=== PATIENT | male | born 1945 | race Caucasian/White ===

== ENCOUNTER → 2025-04-16 | Day surgery (SDC) | payer MEDICARE ==
[~2025-04-16] MED LIST: APIX5TAB PO; ATOR20TA65 PO; FERS325 PO; FINA5TAB41 PO; FOLI1 PO; HYDR500C2 PO; PANT40TA55 PO; SUCR1ORA15 PO; TAMS-55 PO
[2025-04-16 14:30] LABS: IMMATURE GRANULOCYTE ABSOLUTE 0.13 K/uL (0-1); NUCLEATED RED BLOOD CELLS 0.0 % (0.0-0.19); PLATELET COUNT (AUTO) 318 K/uL (130-400); RED BLOOD CELL COUNT(AUTO) 5.47 MIL/uL (4.50-6.20); RED CELL DISTRIBUTION WIDTH 19.2 % (11.0-15.5); WHITE BLOOD COUNT (AUTO) 13.6 K/uL (4.8-10.8)
[2025-04-16 15:01] LABS: INR 1.48 (0.85-1.15)
--- NOTE | 2025-04-16 15:20 | NUR ---
PICC LINE PLACED, INSTRUCTIONS GIVEN TO SPOUSE,
--- NOTE | 2025-04-16 20:10 | HMCIMG ---
EXAM: XR Chest, 1 View. CLINICAL HISTORY: COMPARISON: 04/05/25 17:59 FINDINGS: LUNGS: There is minimal left base atelectasis, similar to the prior. PLEURAL SPACES: No pleural effusion or pneumothorax. HEART: The heart size is normal. BONES: No acute osseous abnormality. LINES AND TUBES: PICC line tip at the cavoatrial junction. PICC line is new compared to the prior. IMPRESSION: 1. PICC line tip at the cavoatrial junction, new compared to the prior. 2. Minimal left base atelectasis, similar to the prior. 3. Comparison 04/05/25 17:59 /[place]
--- NOTE | 2025-04-30 10:42 | NUR ---
PICC LINE PLACED WITH 5FR PICC TRAY, 5FR MICRO-INTRODUCER, AND 21G NEEDLE GUIDE. ON 04/16/25.
== END ==
LOC: DAH 13:35
PROVIDERS: ATTEND Internal Medicine Medical Oncology
DX: Z45.2 Encounter for adjustment and management of vascular access device (principal); D45 Polycythemia vera; D72.828 Other elevated white blood cell count
CPT/HCPCS: 36569; 85025; 85610; 36415; 71045; C1894; C1751

== ENCOUNTER → 2025-04-25 | Day surgery (SDC) | payer MEDICARE ==
[2025-04-25 11:12] LABS: IMMATURE GRANULOCYTE ABSOLUTE 0.10 K/uL (0-1); NUCLEATED RED BLOOD CELLS 0.0 % (0.0-0.19); PLATELET COUNT (AUTO) 209 K/uL (130-400); RED BLOOD CELL COUNT(AUTO) 5.34 MIL/uL (4.50-6.20); RED CELL DISTRIBUTION WIDTH 20.4 % (11.0-15.5); WHITE BLOOD COUNT (AUTO) 10.1 K/uL (4.8-10.8)
--- NOTE | 2025-04-25 11:36 | NUR ---
PICC LINE TO RIGHT UPPER ARM REMOVED, LENGTH 42 CM, NO BLEEDING, PRESSURE DRESSING APPLIED. PICC PLACEMENT TO LEFT UPPER ARM WITHOUT DIFFICULTY, PRESSURE DRESSING APPLIED. NO ACTIVE BLEEDING. INSTRUCTION GIVEN TO TO TAKE TO ONCOLOGY.
[2025-04-25 11:46] LABS: INR 1.43 (0.85-1.15)
--- NOTE | 2025-04-25 14:31 | HMCIMG ---
CHEST 1VW REASON: post picc line COMPARISON: None. FINDINGS: Single view of the chest was obtained. Lungs are clear. Heart size is normal. There is a left-sided PICC catheter with tip in superior vena cava. There is no pulmonary vascular congestion. Mediastinum and bony thorax appear unremarkable. IMPRESSION: 1 no acute cardiothoracic process 2. Right-sided PICC catheter with tip in superior vena cava..
== END | disposition home or self-care (01) ==
LOC: DAH 10:04
PROVIDERS: ATTEND Internal Medicine Medical Oncology
DX: D45 Polycythemia vera (principal); D72.828 Other elevated white blood cell count
CPT/HCPCS: 36569; 85025; 85610; 85730; 36415; 71045; C1894; C1751